=== PATIENT | female | born 1960 | race Caucasian/White ===

== ENCOUNTER 2017-06-29 08:23 | Outpatient (CLI) | payer BC | END 2017-06-29 08:24 | disposition home or self-care (01) | LOC: BICMAMMO 08:23 | PROVIDERS: ATTEND Obstetrics & Gynecology | DX: Z12.31 Encounter for screening mammogram for malignant neoplasm of breast (principal); R92.1 Mammographic calcification found on diagnostic imaging of breast; Z80.3 Family history of malignant neoplasm of breast | CPT/HCPCS: 77063; 77067 ==

== ENCOUNTER 2018-09-20 16:00 | Outpatient (CLI) | payer BC | END 2018-09-20 16:01 | disposition home or self-care (01) | LOC: SLEEPLAB 16:00 | PROVIDERS: ATTEND Dentist General Practice | DX: G47.33 Obstructive sleep apnea (adult) (pediatric) (principal); R53.83 Other fatigue | CPT/HCPCS: 95806 ==

== ENCOUNTER 2019-02-08 14:00 | Outpatient (CLI) | payer BC | END 2019-02-08 14:01 | disposition home or self-care (01) | LOC: SLEEPLAB 14:00 | PROVIDERS: ATTEND Dentist General Practice | DX: G47.33 Obstructive sleep apnea (adult) (pediatric) (principal) | CPT/HCPCS: 95806 ==

== ENCOUNTER 2019-03-14 15:20 | Outpatient (CLI) | payer BC ==
--- NOTE | 2019-04-03 15:58 | MMO ---
Bilateral MAMMO Bilat Screen [facility]. CLINICAL HISTORY: Patient is 58 years old and is seen for screening. The patient has the following family history of breast cancer: paternal aunt. The patient has no personal history of cancer. VIEWS: The views performed were: bilateral craniocaudal with tomosynthesis and bilateral mediolateral oblique with tomosynthesis. FILMS COMPARED: The present examination has been compared to prior imaging studies performed at 04/01/2016, and at [facility] on 09/19/2015 and 06/29/2017. This study has been interpreted with the assistance of computer-aided detection. MAMMOGRAM FINDINGS: There are scattered fibroglandular densities. There are stable benign appearing calcifications seen in both breasts. There are no suspicious masses, suspicious calcifications, or new areas of architectural distortion. IMPRESSION: THERE IS NO MAMMOGRAPHIC EVIDENCE OF MALIGNANCY. A ROUTINE FOLLOW-UP MAMMOGRAM IN 1 YEAR IS RECOMMENDED. THE RESULTS OF THIS EXAM WERE SENT TO THE PATIENT. ACR BI-RADS Category 2 - Benign finding MAMMOGRAPHY NOTE: 1. A negative mammogram report should not delay a biopsy if a dominant of clinically suspicious mass is present. 2. Approximately 10% to 15% of breast cancers are not detected by mammography. 3. Adenosis and dense breasts may obscure an underlying neoplasm. Reported by: PAYAL MCCORMICK MD Electonically Signed: [id number]
== END 2019-03-14 15:21 | disposition home or self-care (01) ==
LOC: BICMAMMO 15:20 → MERGE 15:20 → BICMAMMO 15:21
PROVIDERS: ATTEND Internal Medicine
DX: Z12.31 Encounter for screening mammogram for malignant neoplasm of breast (principal); Z80.3 Family history of malignant neoplasm of breast
CPT/HCPCS: 77063; 77067

== ENCOUNTER 2019-05-16 10:09 | Outpatient (CLI) | payer BC ==
[2019-05-16] MEDS ORDERED: Magnevist 469MG/ML 20 ML VIAL ONE (11:07)
--- NOTE | 2019-05-16 12:17 | MRI ---
EXAM: MRI of the brain without and with contrast HISTORY: Migraine headaches with aura COMPARISON: None TECHNIQUE: Multiplanar multisequence MR images were obtained of the brain without and with IV contras t. FINDINGS: There are a few subtle scattered foci of high T2/FLAIR signal in the subcortical and periventricular white matter, likely secondary to small vessel ischemic disease. No restricted diffusion. No abnormal enhancement. No hydronephrosis. No extra-axial fluid collection or intracranial hemorrhage. The expected flow voids are present. Corpus callosum, pituitary, and craniocervical junction are within normal limits. The calvarium and overlying soft tissues are unremarkable. Mucosal thickening is seen in the right maxillary sinus. The other paranasal sinuses and mastoid air cells are well aerated. IMPRESSION: No evidence of acute intracranial abnormality.
== END 2019-05-16 10:10 | disposition home or self-care (01) ==
LOC: BICMRI 10:09
PROVIDERS: ATTEND Psychiatry & Neurology Neurology
DX: G43.019 Migraine without aura, intractable, without status migrainosus (principal)
CPT/HCPCS: 70553; 82565; A9579

== ENCOUNTER 2019-07-17 11:21 | Outpatient (CLI) | payer BC ==
--- NOTE | 2019-07-17 14:21 | MRI ---
EXAM: MRA angiogram abdomen with and without IV contrast and 3-D reconstructions PROVIDED CLINICAL HISTORY: Superior mesenteric artery aneurysm. COMPARISON: None available. FINDINGS: The celiac artery is patent without focal narrowing present. The superior mesenteric artery is patent, but there is focal ectasia to mild aneurysmal dilatation in volving the mid superior mesenteric artery. Jejunal branches appear to arise from the focal area of ectasia. The superior mesenteric artery in the region of focal ectasia/mild aneurysmal dilatation stephanie sures approximately 11 mm in greatest AP dimension. The remainder of the visualized superior mesenteric artery does appear patent. Single patent bilateral renal arteries are present. The CONCHITA appears patent. Bilateral common iliac arteries as well as most proximal visualized external/internal iliac arteries are patent. There is diminished signal intensity of the liver suggesting diffuse fatty infiltration with focal ar ea of fatty sparing adjacent to the gallbladder. There are increased T2-weighted signal intensity lesions seen involving the kidneys bilaterally with corresponding decreased T1-weighted signal intensity which are likely reflective of cysts, largest in the midportion left kidney measuring 2.9 cm. The pancreas, spleen, and bilateral adrenal glands demonstrate a grossly normal nonenhanced CT appear ance on provided sequences obtained through the upper abdomen. Postoperative changes lower lumbar spine are noted with metallic susceptibility artifact visualized r elated to posterior fusion of the lower lumbar spine. There is an increased T1 weighted signal intensity lesion with trabeculated pattern seen in the L1 vertebral body suggestive of a hemangioma. A central disc protrusion is seen at the T9-10 level which narrows the ventral subarachnoid space with slight flattening anterior aspect of the spinal cord. IMPRESSION: 1. 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 There are jejunal branches extending from the focal area of ectasia. 2. Fatty infiltration of the liver. 3. Bilateral renal cysts.
[2019-07-17] MEDS ORDERED: Magnevist 469MG/ML 20 ML VIAL ONE (15:59)
== END 2019-07-17 11:22 | disposition home or self-care (01) ==
LOC: BICMRI 11:21
PROVIDERS: ATTEND Internal Medicine Cardiovascular Disease
DX: I72.8 Aneurysm of other specified arteries (principal); K76.0 Fatty (change of) liver, not elsewhere classified; N28.1 Cyst of kidney, acquired
CPT/HCPCS: 74185; 82565; A9579; C8902

== ENCOUNTER 2019-12-11 10:07 | Outpatient (CLI) | payer BC ==
--- NOTE | 2019-12-11 11:22 | MMO ---
Left Breast MAMMO Unilat Diag [facility]. CLINICAL HISTORY: Patient is 59 years old and is seen for diagnostic exam. The patient has the following family history of breast cancer: paternal aunt. The patient has no personal history of cancer. VIEWS: The views performed were: left craniocaudal with tomosynthesis; left mediolateral oblique with tomosynthesis; and left mediolateral with tomosynthesis. FILMS COMPARED: The present examination has been compared to prior imaging studies performed at [facility] on 09/08/2018, and at [facility] on 06/29/2017, 03/14/2019 and 12/11/2019. This study has been interpreted with the assistance of computer-aided detection. MAMMOGRAM FINDINGS: There are scattered fibroglandular densities. There is a new focal asymmetry measuring 14 x 29 mm with indistinct margins seen in the left breast at 3 o'clock. Ultrasound - poorly defined area of increased echogenicity. IMPRESSION: NEW FOCAL ASYMMETRY IN THE LEFT BREAST IS PROBABLY BENIGN. FOLLOW-UP IN 1 MONTH IS RECOMMENDED. POSSIBLE INFECTION , INFLAMATION, POST TRAUMA RECOMMEND COURSE OF ANTIBIOTICS. THE RESULTS OF THIS EXAM WERE SENT TO THE PATIENT. ACR BI-RADS Category 3 - Probably benign finding - short interval follow-up suggested. [facility] will notify the patient of the need for additional imaging services. MAMMOGRAPHY NOTE: 1. A negative mammogram report should not delay a biopsy if a dominant of clinically suspicious mass is present. 2. Approximately 10% to 15% of breast cancers are not detected by mammography. 3. Adenosis and dense breasts may obscure an underlying neoplasm. Reported by: ЕКАТЕРИНА LI MD Electonically Signed: [id number]
--- NOTE | 2019-12-11 12:44 | ULT ---
LEFT BREAST ULTRASOUND: Date: 12/11/2019 HISTORY: Patient presents with a history of pain in the outer aspect of her left breast extending from the axi lla down to the mid portion of the outer aspect of the breast, as well as some pain in the region jus t below the left nipple. FINDINGS: Ultrasound examination demonstrates an approximately 0.7 x 1.8 cm diameter area of slightly heterogen eous increased echogenicity in the 3 o'clock position of the left breast 8.0 cm from the nipple, whic h could possibly correspond to the area of new focal asymmetry in the left breast at 3 o'clock. This certainly does not have the typical appearance of a malignancy. A left axillary lymph node is demonst rated. No significant abnormality noted in the region beneath the left nipple. Given patient's history of pain with new focal asymmetry and area of slightly increased echogenic den sity in the region of 3 o'clock in the left breast, I would suggest a trial course of antibiotics thi nking this may be inflammatory or infectious. It could possibly be post-traumatic, although the patie nt indicates that she has no recollection of trauma in this region of the left breast. Short-term fol low-up in 1 month following a course of antibiotics is recommended. IMPRESSION: BI-RADS Category 3 - Probably benign findings. Follow-up left unilateral diagnostic mammogram and pos sibly left breast ultrasound recommended following a course of antibiotics, in approximately 1 month. If this area improves or resolves, then it probably is related to either infection, inflammation, or post trauma. If this area of abnormality worsens and/or if the patient has more focal pain near this region, at that point in time, a biopsy might be entertained. If there is no significant change, another consideration would be to reevaluate this area at the aylin ent's next annual mammogram time period, which would be 03/14/2020. Findings discussed with Dr. Koch. SARA THOMASON
== END 2019-12-11 10:08 | disposition home or self-care (01) ==
LOC: BICMAMMO 10:07
PROVIDERS: ATTEND Obstetrics & Gynecology
DX: N64.4 Mastodynia (principal); N64.89 Other specified disorders of breast
CPT/HCPCS: G0279

== ENCOUNTER 2019-12-28 13:52 | Outpatient (CLI) | payer BC ==
--- NOTE | 2019-12-28 16:04 | MMO ---
FILMS COMPARED: The present examination has been compared to prior imaging studies performed at [facility] on 09/08/2018, and at [facility] on 03/14/2019 and 12/11/2019. MAMMOGRAM FINDINGS: There is a new biopsy clip seen in the upper-outer region of the left breast. IMPRESSION: NEW BIOPSY CLIP IN THE LEFT BREAST IS CONFIRMED UTILIZING POST PROCEDURE MAMMOGRAM. Reported by: LAZ JOHNSON MD Electonically Signed: [id number]
--- NOTE | 2019-12-28 16:05 | ULT ---
Exam: Left breast ultrasound guided biopsy COMPARISON: 12/11/2019 HISTORY: Asymmetry in the upper-outer left breast. FINDINGS: Successful left breast biopsy. A total of 3, 14-gauge core biopsy samples were obtained. Le sional tissue was placed directly in formalin. Post biopsy clip was placed. TECHNIQUE: Consent obtained reformatory left breast biopsy with ultrasound guidance. Left breast was prepped and draped in a sterile fashion. 1% lidocaine, buffered with sodium bicarbonate was used for local anesthesia. Under sonographic guidance, 14-gauge core biopsy needle was advanced into the r egion of increased echogenicity. 2 14-gauge samples were obtained. There are shadowing deep to this echogenic focus which was also sampled with a single 14-gauge pass. Post biopsy clip was placed. Niya ent tolerated the procedure well. No immediate or postprocedure complications. Postbiopsy mammogram was performed which demonstrates appropriate clip position IMPRESSION: Successful left breast biopsy with ultrasound guidance. Final pathologic diagnosis us karley zarate.
== END 2019-12-28 13:53 | disposition home or self-care (01) ==
LOC: BICULT 13:52
PROVIDERS: ATTEND Obstetrics & Gynecology
DX: N64.4 Mastodynia (principal)
CPT/HCPCS: 19083

== ENCOUNTER 2020-11-26 12:36 | Emergency (ER) | payer BC ==
[2020-11-26 13:55] LABS: Bilirubin Negative (Negative); Blood, Urine Negative (Negative); Clarity Turbid (Clear); Glucose, Urine (Dipstick) Normal (Negative); Ketone, Urine Negative (Negative); Leukocyte 25 Leu/uL (Negative); Nitrite Negative (Negative); Protein, Urine (Dipstick) Negative (Neg-Trace); RBC/HPF 0-3 HPF (0-3); Specific Gravity, Urine 1.012 (1.002-1.036); Urobilinogen Normal mg/dL (Less than 2); WBC/HPF 0-3 HPF (0-3); pH, Urine 5.5 (5.0-9.0)
[2020-11-26 13:56] LABS: Bacteria/HPF 1+ HPF (None Seen)
[2020-11-26 14:04] LABS: #Eosinphils 0.2 thou/uL (0.0-0.7); #Lymphocytes 1.6 thou/uL (1.20-3.40); #Monocytes 0.6 thou/uL (0.11-0.59); #Neutrophils 4.8 thou/uL (1.40-6.50); %Basophils 0.3 % (0.0-1.0); %Eosinophils 2.3 % (0.0-10.0); %Lymphocytes 22.3 % (21.0-51.0); %Monocytes 8.9 % (0.0-10.0); %Neutrophils 66.3 % (42.0-75.0); Hemoglobin 14.6 g/dL (12.0-16.0); Mean Corpuscular HGB CONC 33.5 g/dL (32.0-36.0); Mean Corpuscular Hemoglobin 32.3 pg (27.0-31.0); Mean Corpuscular Volume 96.4 fL (78.0-98.0); Mean Platelet Volume 9.1 fL (7.4-10.4); Platelet Count 235 thou/uL (130-400); RBC Distribution Width 11.8 % (11.5-14.5); Red Blood Cell (RBC) Count 4.53 mill/uL (4.20-5.40); White Blood Cell (WBC) Count 7.2 thou/uL (4.8-10.8)
[2020-11-26 14:28] LABS: ALT (SGPT) 19 U/L (8-55); AST (SGOT) 15 U/L (5-34); Albumin 4.4 g/dL (3.5-5.0); Alkaline Phosphatase 100 U/L (40-110); Anion Gap 12 mmol/L (10-20); BUN (Urea Nitrogen) 14 mg/dL (9.8-20.1); Bilirubin, Total 0.5 mg/dL (0.2-1.2); Calc. Creatinine Clearance 0 mL/min (70-130); Calcium 9.8 mg/dL (7.8-10.44); Carbon Dioxide 23 mmol/L (22-29); Chloride 105 mmol/L (98-107); Globulin 2.9 g/dL (2.4-3.5); Glucose 100 mg/dL (70-105); Protein, Total 7.3 g/dL (6.0-8.3); Sodium 136 mmol/L (136-145)
[2020-11-26] MEDS ORDERED: cefTRIAXone\\ROCEPHIN 2 GM VIAL ONE (15:28)
[2020-11-26] MEDS ORDERED: Acetaminophen 500 MG TAB ONE (15:28)
== END 2020-11-26 17:06 | disposition home or self-care (01) ==
LOC: ERS 12:36
DX: M54.5 Low back pain (principal); E78.5 Hyperlipidemia, unspecified; E78.00 Pure hypercholesterolemia, unspecified; I10 Essential (primary) hypertension; J45.909 Unspecified asthma, uncomplicated
CPT/HCPCS: 36415; 74176; 80053; 81003; 81015; 83605; 85025; 87040; 87086; 96374; J0696

== ENCOUNTER 2021-12-12 09:09 | Outpatient (CLI) | payer BC | END 2021-12-12 09:10 | disposition home or self-care (01) | LOC: LABBT 09:09 | PROVIDERS: ATTEND Neurological Surgery | DX: Z01.818 Encounter for other preprocedural examination (principal); Z20.822 Contact with and (suspected) exposure to COVID-19 | CPT/HCPCS: 87811; 93005; 93010 ==

== ENCOUNTER 2021-12-17 07:48 | Day surgery (SDC) | payer BC ==
[2021-12-16 09:50] VITALS: BMI 30.9
[2021-12-17] MEDS ORDERED: HYDROmorphone 2 MG/ML VIAL ONE (09:17)
[2021-12-17] MEDS ORDERED: Propofol 500 MG/50 ML VIAL ONE (09:18)
[2021-12-17] MEDS ORDERED: Bupivacaine PF 0.5% 30 ML VIAL ONE (09:19)
[2021-12-17] MEDS ORDERED: EPINEPHrine 1 MG/ML AMP ONE (09:19)
[2021-12-17] MEDS ORDERED: CEFAZOLIN 2 GM VIAL ONE ×2 (10:01→14:37)
[2021-12-17] MEDS ORDERED: Sodium Chloride 0.9% 100 ML ONE ×2 (10:01→14:38)
[2021-12-17] MEDS ORDERED: Naloxone HCl 0.4 mg/ml Vial ONE (10:13)
[2021-12-17] MEDS ORDERED: Glycopyrrolate 0.2 MG/ML 5 ML SYRINGE ONE (10:13)
[2021-12-17] MEDS ORDERED: ePHEDrine 50 MG/ML VIAL ONE (10:13)
[2021-12-17] MEDS ORDERED: Rocuronium Bromide 10 MG/ML (10ML VIAL) ONE (10:13)
[2021-12-17] MEDS ORDERED: Esmolol 100 MG/10 ML VIAL ONE (10:13)
[2021-12-17] MEDS ORDERED: Dexamethasone 20 MG/5 ML VIAL ONE (10:13)
[2021-12-17] MEDS ORDERED: Lidocaine 1% PF 5 ML VIAL ONE (10:13)
[2021-12-17] MEDS ORDERED: PROPOFOL 200 MG/20 ML VIAL ONE (10:13)
[2021-12-17] MEDS ORDERED: SUGAMMADEX SODIUM 200 MG/2 ML VIAL ONE (11:57)
[2021-12-17] MEDS ORDERED: Fentanyl 100 MCG/2 ML VIAL ONE (12:27)
[2021-12-17] MEDS ORDERED: HYDROcodone/Acetaminophen 5/325 mg Tablet ONE (14:35)
== END 2021-12-17 15:15 | disposition home or self-care (01) ==
LOC: SDC 07:48
PROVIDERS: ATTEND Neurological Surgery
PROC: 01NB0ZZ Release Lumbar Nerve, Open Approach (ICD-10-PCS; principal; 2021-12-17)
DX: M51.16 Intervertebral disc disorders with radiculopathy, lumbar region (principal); M48.061 Spinal stenosis, lumbar region without neurogenic claudication; M51.37 Other intervertebral disc degeneration, lumbosacral region; E78.5 Hyperlipidemia, unspecified; M19.90 Unspecified osteoarthritis, unspecified site; E03.9 Hypothyroidism, unspecified; I10 Essential (primary) hypertension; E11.9 Type 2 diabetes mellitus without complications; Z79.890 Hormone replacement therapy; Z79.899 Other long term (current) drug therapy; Z91.048 Other nonmedicinal substance allergy status; Z98.1 Arthrodesis status
CPT/HCPCS: 76000; J0171; J0690; J1100; J1170; J2310; J2704; J2710; J3010; J3490; S0020

== ENCOUNTER 2022-07-20 10:50 | Emergency (ER) | payer BC ==
[~2022-07-20 10:50] MED LIST: Iopamidol-370 76% 500 ML 1 ML ONE
[2022-07-20 11:38] LABS: #Basophils 0.1 thou/uL (0.0-0.2); #Eosinphils 0.2 thou/uL (0.0-0.7); #Lymphocytes 1.7 thou/uL (1.20-3.40); #Monocytes 0.5 thou/uL (0.11-0.59); #Neutrophils 5.7 thou/uL (1.40-6.50); %Basophils 0.8 % (0.0-1.0); %Eosinophils 1.9 % (0.0-10.0); %Lymphocytes 21.5 % (21.0-51.0); %Monocytes 5.8 % (0.0-10.0); Hemoglobin 12.9 g/dL (12.0-16.0); Mean Corpuscular HGB CONC 33.9 g/dL (32.0-36.0); Mean Corpuscular Hemoglobin 34.5 pg (27.0-31.0); Mean Platelet Volume 9.8 fL (7.4-10.4); Platelet Count 179 10x3/uL (130-400); RBC Distribution Width 12.4 % (11.5-14.5); Red Blood Cell (RBC) Count 3.74 mill/uL (4.20-5.40); White Blood Cell (WBC) Count 8.1 10x3/uL (4.8-10.8)
[2022-07-20 11:54] LABS: ALT (SGPT) 45 U/L (8-55); AST (SGOT) 18 U/L (5-34); Alkaline Phosphatase 70 U/L (40-110); Anion Gap 10 mmol/L (10-20); BUN (Urea Nitrogen) 17 mg/dL (9.8-20.1); Bilirubin, Total 0.5 mg/dL (0.2-1.2); Calc. Creatinine Clearance 0 mL/min (70-130); Carbon Dioxide 26 mmol/L (23-31); Chloride 104 mmol/L (98-107); Estimated GFR 63; Globulin 2.5 g/dL (2.4-3.5); Glucose 99 mg/dL (80-115); Lipase 102 U/L (8-78); Potassium 4.2 mmol/L (3.5-5.1); Protein, Total 6.5 g/dL (5.8-8.1); Sodium 136 mmol/L (136-145)
[2022-07-20] MEDS ORDERED: Ketorolac Tromethamine 30 MG/ML VIAL ONE (15:09)
[2022-07-20] MEDS ORDERED: Ondansetron PF 4 MG/2 ML Vial ONE (15:09)
[2022-07-20 18:06] LABS: Bilirubin Negative (Negative); Blood, Urine 1+ (Negative); Clarity Clear (Clear); Glucose, Urine (Dipstick) Normal (Negative); Ketone, Urine Negative (Negative); Leukocyte Negative Leu/uL (Negative); Nitrite Negative (Negative); Protein, Urine (Dipstick) Negative (Neg-Trace); RBC/HPF 0-3 HPF (0-3); Specific Gravity, Urine 1.019 (1.002-1.036); Squamous Epithelial 0-3 HPF (0-3); Urobilinogen Normal mg/dL (Less than 2); WBC/HPF 0-3 HPF (0-3); pH, Urine 6.5 (5.0-9.0)
[2022-07-20 18:07] LABS: Bacteria/HPF 1+ HPF (None Seen)
== END 2022-07-20 18:34 | disposition home or self-care (01) ==
LOC: ERS 10:50
DX: R10.9 Unspecified abdominal pain (principal); E78.00 Pure hypercholesterolemia, unspecified; I10 Essential (primary) hypertension
CPT/HCPCS: 36415; 74177; 76705; 80053; 81003; 81015; 83690; 85025; 96374; 96375; J1885; J2405; Q9967

== ENCOUNTER 2022-07-31 08:56 | Outpatient (CLI) | payer BC | END 2022-07-31 08:57 | disposition home or self-care (01) | LOC: NM 08:56 | PROVIDERS: ATTEND Physician Assistant Medical | DX: R10.11 Right upper quadrant pain (principal) | CPT/HCPCS: 78227; A9537 ==

== ENCOUNTER 2022-08-11 10:16 | Outpatient (CLI) | payer BC | END 2022-08-11 10:17 | disposition home or self-care (01) | LOC: BICRAD 10:16 | PROVIDERS: ATTEND Physician Assistant Medical | DX: R05.9 Cough, unspecified (principal) | CPT/HCPCS: 71046 ==

== ENCOUNTER 2022-08-18 07:46 | Outpatient (CLI) | payer BC | END 2022-08-18 07:47 | disposition home or self-care (01) | LOC: SCSMRI 07:46 | PROVIDERS: ATTEND Physician Assistant Medical | DX: I72.8 Aneurysm of other specified arteries (principal); R10.9 Unspecified abdominal pain | CPT/HCPCS: 74185; 82565; C8902 ==

== ENCOUNTER 2023-01-22 13:59 | Outpatient (CLI) | payer BC | END 2023-01-22 14:00 | disposition home or self-care (01) | LOC: BICMAMMO 13:59 | PROVIDERS: ATTEND Family Medicine | DX: Z12.31 Encounter for screening mammogram for malignant neoplasm of breast (principal); Z80.3 Family history of malignant neoplasm of breast; Z91.89 Other specified personal risk factors, not elsewhere classified | CPT/HCPCS: 77063; 77067 ==

== ENCOUNTER 2023-01-28 09:37 | Outpatient (CLI) | payer BC | END 2023-01-28 09:38 | disposition home or self-care (01) | LOC: RAD 09:37 | PROVIDERS: ATTEND Nurse Practitioner Family | DX: M25.552 Pain in left hip (principal) ==

== ENCOUNTER 2025-02-27 13:29 | Outpatient (CLI) | payer BC | END 2025-02-27 13:30 | disposition home or self-care (01) | LOC: BICMAMMO 13:29 | PROVIDERS: ATTEND Nurse Practitioner Family | DX: Z12.31 Encounter for screening mammogram for malignant neoplasm of breast (principal); Z80.3 Family history of malignant neoplasm of breast; Z91.89 Other specified personal risk factors, not elsewhere classified | CPT/HCPCS: 77063; 77067 ==